=== PATIENT | female | born 1985 | race Caucasian/White ===

== ENCOUNTER 2017-05-17 16:10 | Emergency (ER) | payer OTHER, SELFPAY ==
[2017-05-17 18:39] VITALS: BP 135/86; PULSE 77; RESP 20; TEMP 36.8; O2SAT 100; BMI 29.5
--- NOTE | 2017-05-17 18:50 | CT_ITS ---
CT abdomen pelvis wo con Ordering Physician: Florencio Lucero MD Patient Age: 31 years: Female HISTORY: ITS.REASON: severe rlq pain TECHNIQUE: Helical CT scanning performed through the abdomen and pelvis with no oral or IV contrast. COMPARISON :No previous studies available FINDINGS Lung bases clear. Heart normal size. Abdomen/pelvis. Lack of oral and IV contrast decreases sensitivity. Gallbladder. Diffuse gallbladder wall thickening. Mild hazy appearance in the pericolic fat images do suggest cholecystitis. Warrants correlation with ultrasound. No calcified stones are evident within the gallbladder nor along the course of the common duct.. The liver appears normal with no intrahepatic biliary ductal dilatation. . Spleen upper normal size 12.5 cm height 11 cm in AP. Just less than 10 mm likely cyst at the posterior inferior margin of the spleen, ( axial image 47,48 & sagittal image 80) Adrenals unremarkable. Kidneys. No urinary tract calculi nor obstruction. 8 mm low-density area left kidney midportion axial image 44. Likely cyst. Ultrasound could confirm. . consider postcontrast CT of if weight-loss progresses unexplained.. GI tract. Appendix normal. Moderate stool throughout the colon most evident at the right and transverse colon. . Moderate fluid throughout small bowel. No bowel dilatation or obstruction. Proximal stomach wall upper normal thickness most likely reflecting lack of distention Pelvis uterus moderate size. No adnexal masses. . Osseous structures. Degenerative disc space narrowing L5/S1 with prominent posterior ridging, lumbar spondylosis. Spur/disc indents the left may impinge upon the thecal sac or exiting left nerve root at this level.,. Also moderate facet arthropathy. IMPRESSION 1. Appears to be mild diffuse gallbladder wall thickening, along with slight hazy appearance fat surrounding the gallbladder.-Findings suspect developing Cholecystitis. Clinical correlation required [Suggest follow-up RUQ ultrasound, particularly if right upper quadrant symptoms. . 2. Minor Incidental observations in text.
[2017-05-17 19:05] LABS: Microscopic, Urine URINE MICROSCOPIC (MICROSCOPIC)
[2017-05-17 19:06] LABS: Appearance,Urine CLEAR (Clear); Bilirubin,Urine Negative (Negative); Blood, Urine TRACE-I (Negative); Color,Urine YELLOW (Yellow); Glucose,Urine (UA) Negative (Negative); Ketones,Urine Negative (Negative); Leukocyte Esterase,Urine SMALL (Negative); Nitrate,Urine Negative (Negative); PH,Urine 6.5 (5.0-8.5); Protein,Urine Negative (Negative); Urobilinogen,Urine 0.2 EU/dl (0.2)
[2017-05-17 19:19] LABS: RBC,Urine Occasional #/hpf (0-3)
[2017-05-17 19:22] VITALS: BP 137/82; PULSE 68; RESP 14; TEMP 37.1; O2SAT 95
[2017-05-17 19:25] LABS: Urine Pregnancy, HCG Qual. Negative (Negative)
[2017-05-17 19:27] LABS: Basophils # 0.1 K/mm3 (0-0.2); Basophils % 1.3 % (0.1-2.0); Eosinophils # 0.4 K/mm3 (0.0-0.4); Eosinophils % 4.3 % (0.1-12.0); Hematocrit 44.4 % (37.0-47.0); Hemoglobin 14.7 g/dL (12.2-16.2); Lymphocytes # 4.7 K/mm3 (0.7-4.5); Lymphocytes % 50.9 K/mm3 (10-50); Mean Corpuscular HGB Conc 33.1 g/dL (31.8-35.4); Mean Corpuscular Hemoglobin 30.9 pg (27.0-31.2); Mean Corpuscular Volume 93.3 fl (81-99); Mean Platelet Volume 9.1 fl (7.4-10.4); Monocytes # 0.6 K/mm3 (0.1-1.0); Monocytes % 6.1 % (1.7-9.3); Neutrophils # 3.5 K/mm3 (1.8-7.8); Neutrophils % 37.5 % (37.0-80.0); Platelet Count 163 K/mm3 (142-424); Red Blood Count 4.76 M/mm3 (4.20-5.40); Red Cell Distribution Width 12.5 % (11.5-17.5); White Blood Count 9.2 K/mm3 (4.8-10.8)
[2017-05-17 19:32] LABS: MANUAL DIFFERENTIAL MANUAL DIFFERENTIAL (MANUAL DIFF)
[2017-05-17 19:33] LABS: Alanine Aminotransferase 27 U/L (12-78); Albumin Level 3.6 gm/dL (3.4-5.0); Albumin/Globulin Ratio 0.9 (1.1-1.8); Alkaline Phosphatase 40 U/L (46-116); Amylase 59 U/L (25-125); Anion Gap 13.9 mEq/L (5-15); Aspartate Amino Transferase 18 U/L (15-37); Bilirubin,Total 0.2 mg/dL (0.2-1.0); Blood Urea Nitrogen 11 mg/dL (7-18); Calcium 8.7 mg/dL (8.5-10.1); Carbon Dioxide 26 mmol/L (21.0-32.0); Chloride 102 mmol/L (98-107); Creatinine Clearance Estimated 153 mL/min (0-300); Estimated Glomerular Filt Rate 98 ml/min (>60); GFR (African American) 118 ML/MIN (>60); Glucose 96 mg/dL (74-106); Lipase 114 u/L (73-393); Potassium 3.9 mmoL/L (3.5-5.1); Sodium 138 mmol/L (136-145); Total Protein,Serum 7.6 gm/dL (6.4-8.2)
[2017-05-17 19:58] LABS: Lymphocytes % 53 % (10-50); Monocytes % 6 % (2-9); Neutrophils % 35 % (42-76); Total Cells Counted 100
[2017-05-17 19:59] LABS: Platelet Estimate Normal; RBC Morphology Normal; Toxic Granulation 1+
--- NOTE | 2017-05-17 20:35 | [facility].EDABDPAI ---
ED Disposition Clinical Impression: Biliary colic Disposition: Home, Self-Care Condition on Discharge: Good Instructions: DI for General Gallbladder Conditions, DI for Abdominal Pain-Adult Additional Instructions: Avoid fatty foods. Contact your primary care provider on Friday. I recommend that she try and schedule your gallbladder ultrasound at a different hospital than previously. Additional instructions for ABDOMINAL PAIN: See your physician as soon as possible for further evaluation. Return immediately if worsening abdominal pain, vomiting, shortness of breath, fever, vomiting of blood or abdominal distention. Prescriptions: Amoxicillin/Potassium Clav [Augmentin 875-125 Tablet] 1 tab PO Q12H #20 tab Naproxen [Naprosyn 500mg tablet] 500 mg PO BIDP PRN #14 tablet PRN Reason: Moderate Pain Ondansetron [Zofran 4mg ODT] 4 mg PO TIDP PRN #10 tab.rapdis PRN Reason: Nausea And Vomiting - Critical Care Critical Care Time: No Attestation: On 05/17/17, the high probability of a clinically significant, sudden or life threatening deterioration of the following system(s) required my full and direct attention, intervention and personal management. The time I documented below is in addition to time spent performing reported procedures but includes the following listed in this critical care notation. Medical Decision Making Vital Signs: 05/17/17 18:39 05/17/17 19:22 Temperature 98.3 F 98.7 F Temperature Source Oral Oral Pulse Rate [Right Brachial] 77 68 Respiratory Rate 20 14 Blood Pressure [Right Arm] 135/86 137/82 Blood Pressure Mean [Right Arm] 102 100 Blood Pressure Source [Right Arm] Automatic Cuff Automatic Cuff Blood Pressure Position [Right Arm] Sitting Sitting 02 Sat by Pulse Oximetry 100 95 Oxygen Delivery Method Room Air Room Air - Lab Data Lab results reviewed: Yes: I reviewed the patient's lab results. Lab Results 05/17/17 19:00: Urine Color Yellow, Urine Appearance Clear, Urine pH 6.5, Ur Specific Sadler 1.010, Urine Protein Negative, Urine Glucose (UA) Negative, Urine Ketones Negative, Urine Blood Trace-i, Urine Nitrate Negative, Urine Bilirubin Negative, Urine Urobilinogen 0.2, Ur Leukocyte Esterase Small, Urine RBC Occasional, Urine WBC 5-10, Ur Squamous Epith Cells 5-10 05/17/17 19:10: WBC 9.2, RBC 4.76, Hgb 14.7, Hct 44.4, MCV 93.3, MCH 30.9, MCHC 33.1, RDW 12.5, Plt Count 163, MPV 9.1, Neut % (Auto) 37.5, Lymph % (Auto) 50.9 H, Bennett % (Auto) 6.1, Eos % (Auto) 4.3, Baso % (Auto) 1.3, Neut # (Auto) 3.5, Lymph # (Auto) 4.7 H, Bennett # (Auto) 0.6, Eos # (Auto) 0.4, Baso # (Auto) 0.1, Total Counted 100, Neutrophils % (Manual) 35 L, Band Neutrophils % 6.0, Lymphocytes % (Manual) 53 H, Monocytes % (Manual) 6, Toxic Granulation 1+, Platelet Estimate Normal, RBC Morphology Normal 05/17/17 19:10: Sodium 138, Potassium 3.9, Chloride 102, Carbon Dioxide 26, Anion Gap 13.9, BUN 11, Creatinine 0.70, Estimated Creat Clear 153, Estimated GFR 98, Est GFR ( Amer) 118, Glucose 96, Calcium 8.7, Total Bilirubin 0.2, AST 18, ALT 27, Alkaline Phosphatase 40 L, Total Protein 7.6, Albumin 3.6, Globulin 4.0 H, Albumin/Globulin Ratio 0.9 L, Amylase 59, Lipase 114 05/17/17 19:10: Urine HCG, Qual Negative Result diagrams: 05/17/17 19:10 05/17/17 19:10 Orders (Tests/Meds): ED MEDICATIONS Discontinued Medications Generic Name Dose Route Start Last Admin Trade Name Jeff PRN Reason Stop Dose Admin Amoxicillin/Clavulanate Potassium 500 each 05/17/17 20:48 Augmentin 500mg Tablet PO 05/17/17 20:49 ONCE ONE Protocol Ketorolac Tromethamine 30 mg 05/17/17 20:47 Toradol 30mg/Ml Vial IV 05/17/17 20:48 ONCE ONE Ondansetron HCl 4 mg 05/17/17 20:47 Zofran 4mg/2ml Vial IV 05/17/17 20:48 ONCE ONE ORDERS Category Date Time Status CT abdomen pelvis wo con Stat Cat Scan 05/17/17 18:50 Taken - CT Data CT Scan: Abdomen, Pelvis Time Received: 20:37 Fin
--- NOTE | 2017-05-17 21:10 | PC.NURSE ---
PT JUST READY TO LEAVE REFUSED ALL HER MEDS , PT STATES SHE JUST WANTS HER GALLBLADDER OUT , I TALKED WITH HER ABOUT FOLLOWING UP WITH PCP , TO GET FURTHER TEST THATS NEEDS TO BE ORDERED ON OP BASES
--- NOTE | 2017-05-17 21:58 | PC.NURSE ---
TO BE DISCHARGED. PATIENT UPSET THAT NOTHING BEING DONE TO REMOVE HER GALLBLADDER TONIGHT. REFUSED ALL MEDS. IV REMOVED AND PATIENT LEFT
== END 2017-05-17 21:30 | disposition home or self-care (01) ==
PROVIDERS: Emergency Medicine; Emergency Provider Emergency Medicine
DX: K80.50 Calculus of bile duct without cholangitis or cholecystitis without obstruction (principal); F17.210 Nicotine dependence, cigarettes, uncomplicated
CPT/HCPCS: 74176; 80053; 81001; 81025; 82150; 83690; 85007; 85025; 99284